=== PATIENT | female | born 1975 | race Asian ===

== ENCOUNTER 2018-08-02 14:40 | Outpatient (CLI) | payer OTHER ==
[2018-08-02 14:54] LABS: PLATELET COUNT 441 K/uL (152-353)
== END 2018-08-02 23:24 | disposition home or self-care (01) ==
LOC: LABW 14:40
PROVIDERS: Internal Medicine Gastroenterology
DX: D50.8 Other iron deficiency anemias (principal)
CPT/HCPCS: 36415; 85027

== ENCOUNTER 2018-09-26 12:59 | Emergency (ER) | payer OTHER ==
[~2018-09-26] VITALS: Ht 160 cm; Wt 92.1 kg
[2018-09-26 13:20] VITALS: TEMP 98.6
[2018-09-26 15:27] VITALS: BP 178/64
== END 2018-09-26 15:27 | disposition home or self-care (01) ==
LOC: ED 12:59
DX: A59.01 Trichomonal vulvovaginitis (principal)
CPT/HCPCS: 81000; 99282

== ENCOUNTER 2019-10-19 09:11 | Outpatient (CLI) | payer OTHER ==
[2019-10-19 09:56] LABS: POTASSIUM 3.3 mmol/L (3.6-5.2)
[2019-10-19 11:01] LABS: PLATELET COUNT 965 K/uL (152-353)
== END 2019-10-19 22:25 | disposition home or self-care (01) ==
LOC: LABW 09:11
PROVIDERS: Internal Medicine
DX: D86.0 Sarcoidosis of lung (principal); D64.9 Anemia, unspecified; R07.2 Precordial pain; M41.9 Scoliosis, unspecified
CPT/HCPCS: 36415; 80053; 85027

== ENCOUNTER 2020-06-15 13:13 | Emergency (ER) | payer OTHER ==
[~2020-06-15] VITALS: Ht 160 cm; Wt 95.3 kg
[2020-06-15 13:18] VITALS: TEMP 99
[2020-06-15 14:34] LABS: POTASSIUM 3.2 mmol/L (3.6-5.2)
[2020-06-15 14:36] LABS: PLATELET COUNT 1267 K/uL (152-353)
[2020-06-16 04:23] LABS: PLATELET COUNT 1145 K/uL (152-353)
[2020-06-16 04:50] VITALS: BP 152/80
== END 2020-06-16 05:17 | disposition home or self-care (01) ==
LOC: ED 13:13
PROVIDERS: Family Medicine
PROC: 30233N1 Transfusion of Nonautologous Red Blood Cells into Peripheral Vein, Percutaneous Approach (ICD-10-PCS; principal; 2020-06-15)
DX: D25.9 Leiomyoma of uterus, unspecified (principal); D50.0 Iron deficiency anemia secondary to blood loss (chronic)
CPT/HCPCS: 36430; 80053; 81000; 81025; 82272; 85027; 86850; 86900; 86901; 86922; 99284; P9016; Q9963

== ENCOUNTER 2020-06-20 14:04 | Outpatient (CLI) | payer OTHER ==
[2020-06-20 14:29] LABS: POTASSIUM 3.3 mmol/L (3.6-5.2)
[2020-06-20 14:36] LABS: PLATELET COUNT 945 K/uL (152-353)
== END 2020-06-20 19:53 | disposition home or self-care (01) ==
LOC: LABW 14:04
PROVIDERS: Nurse Practitioner Family
DX: Z11.59 Encounter for screening for other viral diseases (principal); D64.9 Anemia, unspecified
CPT/HCPCS: 36415; 80053; 85007; 85027; 87635; G2023; U00003